=== PATIENT | male | born 1975 | race Caucasian/White ===

== ENCOUNTER 2019-01-20 13:03 | Inpatient (IN) | payer OTHER ==
[2019-01-20] MEDS ORDERED: LR 1,000 ML IV ONE (13:12)
--- NOTE | 2019-01-20 13:56 | PDHPUP ---
History & Physical Update H&P update statement: This history and physical update is based on an assessment of the patient which was completed after admission or registration (within 24 hours), but prior to the surgery/procedure. H&P update: H&P reviewed & patient examined, no change in patient's condition since H&P completed
[2019-01-20] MEDS ORDERED: BUPIVACAINE/EPI 0.25% 30 ML SDV ONE (13:57)
[2019-01-20] MEDS ORDERED: BACITRACIN 50,000 UNITS/10 ML SYR IRR ONE ×2 (13:59→16:45)
[2019-01-20] MEDS ORDERED: CHLORHEXIDINE GLUC HIBICLENS 118 ML BTL TP ONE (13:59)
[2019-01-20] MEDS ORDERED: THROMBIN (BOVINE) 20,000 UNIT VIAL TP ONE (13:59)
[2019-01-20] MEDS ORDERED: LIDOCAINE 1% 2 ML INJ ONE (14:12)
[2019-01-20] MEDS ORDERED: ENALAPRILAT DIHYDRATE 1.25 MG/ML VIAL ONE (14:20)
[2019-01-20] MEDS ORDERED: MIDAZOLAM 2 MG/2 ML VIAL ONE (14:20)
[2019-01-20] MEDS ORDERED: MAGNESIUM SULFATE 1 GM/2 ML VIAL ONE (14:35)
[2019-01-20] MEDS ORDERED: DIAZEPAM 10 MG/2 ML SYR ONE (14:36)
[2019-01-20] MEDS ORDERED: GABAPENTIN 300 MG CAP PO ONE (14:37)
[2019-01-20] MEDS ORDERED: ACETAMINOPHEN 500 MG TAB PO ONE (14:37)
[2019-01-20] MEDS ORDERED: ceFAZolin 2 GM/DEXTROSE 100 ML IV ONE (14:37)
[2019-01-20] MEDS ORDERED: PROPOFOL/EMULSION 500 MG/50 ML BOTTLE IV ONE ×4 (14:39→18:21)
[2019-01-20] MEDS ORDERED: fentaNYL 250 MCG/5 ML INJ ONE (14:39)
[2019-01-20] MEDS ORDERED: CEFAZOLIN 2 GM/DEXTROSE/100 ML BAG IV ONE (14:40)
--- NOTE | 2019-01-20 15:48 | PDANEPAE ---
ANE Past Medical History - Cardiovascular History Hx Hypertension: Yes Hx Arrhythmias: No Hx Chest Pain: No Hx Coronary Artery / Peripheral Vascular Disease: No Hx CHF / Valvular Disease: No Hx Palpitations: No - Pulmonary History Hx COPD: No Hx Asthma/Reactive Airway Disease: No Hx Recent Upper Respiratory Infection: No Hx Oxygen in Use at Home: No Hx Sleep Apnea: No - Neurologic History Hx Seizures: Yes Hx Dementia: No Neurologic History Comment: Last week 1 seizure, saturday (dry needling at PT, seizure on table). - Endocrine History Hx Diabetes: No - Renal History Hx Renal Disorders: No - Liver History Hx Hepatic Disorders: No - Neurological & Psychiatric Hx Hx Neurological and Psychiatric Disorders: No - Cancer History Hx Cancer: No - GI History Hx Gastrointestinal Disorders: No - Chronic Pain History Chronic Pain: Yes - Surgical History Prior Surgeries: Two acls L leg. Bankhart lesion R shoulder. Three injections L4-L5 ANE Review of Systems Review of Systems: - Exercise capacity METS (RN): 6 METS ANE Patient History - Allergies Allergies/Adverse Reactions: No Allergies [NKDA] Allergy (Verified 01/20/19 13:27) - Home Medications Home Medications: NK [No Known Home Meds] 01/20/19 [Last Taken Unknown] - NPO status NPO Since - Liquids (Date): 01/20/19 NPO Since - Liquids (Time): 07:30 NPO Since - Solids (Date): 01/20/19 NPO Since - Solids (Time): 06:30 - Smoking Hx Smoking Status: Never smoked ANE Labs/Vital Signs - Vital Signs Blood Pressure: 175/107 Heart Rate: 70 Respiratory Rate: 18 O2 Sat (%): 97 Height: 180.34 cm Weight: 95.254 kg ANE Physical Exam - Airway Neck exam: FROM Mallampati Score: Class 1 Mouth exam: normal dental/mouth exam - Pulmonary Pulmonary: no respiratory distress, no rales or rhonchi, clear to auscultation - Cardiovascular Cardiovascular: regular rate and rhythym, no murmur, rub, or gallop - ASA Status ASA Status: II ANE Anesthesia Plan Anesthesia Plan: general endotracheal anesthesia Lines/Monitors: additional IV Total IV Anesthesia: Yes
[2019-01-20] MEDS ORDERED: ONDANSETRON 4 MG/2 ML VIAL ONE (16:46)
[2019-01-20] MEDS ORDERED: ceFAZolin 1 GM VIAL ONE ×2 (16:46)
[2019-01-20] MEDS ORDERED: KETOROLAC 30 MG/1 ML SDV ONE (16:46)
[2019-01-20] MEDS ORDERED: LIDOCAINE 2% 5 ML SDV ONE (16:46)
[2019-01-20] MEDS ORDERED: ROCURONIUM 50 MG/5 ML VIAL ONE (16:46)
[2019-01-20] MEDS ORDERED: METOCLOPRAMIDE 10 MG/2 ML VIAL ONE (16:46)
[2019-01-20] MEDS ORDERED: DEXAMETHASONE 4 MG/ML VIAL ONE (16:46)
[2019-01-20] MEDS ORDERED: RANITIDINE 50 MG/2 ML VIAL ONE (16:46)
[2019-01-20] MEDS ORDERED: HYDROmorphONE/DILAUDID 1 MG/ML INJ IVP PRN (19:10)
[2019-01-20] MEDS ORDERED: LR 500 ML IV PRN (19:10)
[2019-01-20] MEDS ORDERED: ONDANSETRON 4 MG/2 ML VIAL IVP PRN ×2 (19:10→20:21)
[2019-01-20] MEDS ORDERED: DIAZEPAM 10 MG/2 ML SYR IVP PRN (19:10)
[2019-01-20] MEDS ORDERED: ALBUTEROL 3 ML DEYVIAL IH PRN (19:10)
[2019-01-20] MEDS ORDERED: DEXAMETHASONE 4 MG/ML VIAL IVP PRN (19:10)
[2019-01-20] MEDS ORDERED: fentaNYL 100 MCG/2 ML INJ IVP PRN (19:10)
[2019-01-20] MEDS ORDERED: PROMETHAZINE HCL 25 MG/ML INJ IVP PRN (19:10)
[2019-01-20] MEDS ORDERED: NALOXONE HCL 0.4 MG/ML INJ IVP PRN ×2 (19:10→20:21)
[2019-01-20] MEDS ORDERED: fentaNYL 100 MCG/2 ML INJ ONE (20:05)
[2019-01-20] MEDS ORDERED: BISACODYL 10 MG SUPP PR PRN (20:21)
[2019-01-20] MEDS ORDERED: MAGNESIUM HYDROXIDE 30 ML UDCUP PO PRN (20:21)
[2019-01-20] MEDS ORDERED: diphenhydrAMINE 25 MG CAP PO PRN (20:21)
[2019-01-20] MEDS ORDERED: HYDROmorphONE/DILAUDID 6 MG/30 ML PCA IV PRN (20:21)
[2019-01-20] MEDS ORDERED: LACTULOSE 20 GM/30 ML UDCUP PO PRN (20:21)
[2019-01-20] MEDS ORDERED: POLYETHYLENE GLYCOL 3350 17 GM PKT PO PRN (20:21)
[2019-01-20] MEDS ORDERED: ONDANSETRON DISINTEGRATING 4 MG TAB PO PRN (20:21)
--- NOTE | 2019-01-20 20:28 | SOAPPROG ---
SOAP Progress Note Assessment/Plan: Assessment: 43 yo M sp L4/5, L5/S1 TLIF Plan: stable PT/OT LSO brace when out of bed to stepdown overnight for precedex please call with neuro changes 01/20/19 20:27 Subjective: + back pain, no leg pain Objective: Vital Signs Temp Pulse Resp BP Pulse Ox 36.7 C 70 18 175/107 H 97 01/20/19 13:41 01/20/19 15:48 01/20/19 15:48 01/20/19 15:48 01/20/19 15:48 somnolent PERRL, EOMI TORRES x 4, right DF weakness + light touch ICD10 Worksheet Patient Problems: Problems Problem Status Onset Fusion of spine of lumbar region Acute - ICD10 Problem Qualifiers (1) Fusion of spine of lumbar region
[2019-01-20] MEDS ORDERED: NS 1,000 ML IV SCH (20:30)
[2019-01-20] MEDS ORDERED: DEXMEDETOMIDINE HCL 400 MCG in NS 100 ML IV SCH (20:45)
[2019-01-20] MEDS ORDERED: HYDROmorphONE/DILAUDID 1 MG/ML INJ ONE (20:58)
[2019-01-20] MEDS: DEXMEDETOMIDINE HCL 400 MCG in NS 100 ML IV SCH (22:19)
--- NOTE | 2019-01-20 22:51 | POSTANESTH ---
Post Anesthetic Evaluation Cardiovascular Status: Normal, Stable, Similar to Pre-Op Cond Respiratory Status: Normal, Stable, Similar to Pre-op Cond. Level of Consciousness/Mental Status: Can Participate in Eval Pain Control: Adequate, Prn Tx Ordered Nausea/Vomiting Control: Adequate, Prn Tx Ordered Complications Possibly Related to Anesthesia: None Noted
[2019-01-20] MEDS: ceFAZolin 2 GM/DEXTROSE 100 ML IV SCH (23:03)
[2019-01-20] MEDS: oxyCODONE IR 5 MG TAB PO PRN (23:16)
[2019-01-20] MEDS: HYDROmorphONE/DILAUDID 1 MG/ML INJ IVP PRN (23:17)
[2019-01-20] MEDS: SENNOSIDES/DOCUSATE SODIUM TAB PO SCH (23:43)
[2019-01-20] MEDS: FAMOTIDINE 20 MG TAB PO SCH (23:44)
[2019-01-21] MEDS: oxyCODONE IR 5 MG TAB PO PRN ×5 (03:07→20:35)
[2019-01-21] MEDS: DEXMEDETOMIDINE HCL 400 MCG in NS 100 ML IV SCH (04:03)
[2019-01-21] MEDS: METHOCARBAMOL 750 MG TAB PO PRN ×4 (04:16→23:39)
[2019-01-21] MEDS: HYDROmorphONE/DILAUDID 1 MG/ML INJ IVP PRN ×2 (04:16→17:25)
--- NOTE | 2019-01-21 04:16 | GOP ---
[f rep st] OPERATIVE REPORT DATE OF OPERATION: 01/20/2019 SURGEON: Cristi Clemons MD NEUROSURGEON: Cristi Clemons M.D. LABEL MACHINE OPERATOR: 1. Saleem Barr PA-C. 2. Oh Partida PA-C. PREOPERATIVE DIAGNOSIS: 1. Right foot drop. 2. Spondylolysis L5. 3. Spondylolisthesis L5-S1. 4. 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 5. Disk herniation L4-5. POSTOPERATIVE DIAGNOSIS: 1. Right foot drop. 2. Spondylolysis L5. 3. Spondylolisthesis L5-S1. 4. 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 5. Disk herniation L4-5. 6. Bilateral pars defects at L5. PROCEDURE PERFORMED: Posterior lateral and intervertebral arthrodesis L4-5, L5-S1 with a Yang decomp ression bilaterally at L5-S1 ([id number], [id number]), posterior segmental instrumentation L4, L5, S1 ([id number]), spinal stereotaxis, placement of biomechanical intervertebral device L4-5, L5-S1, same incision bone graft harvest, microscope. FINDINGS: ESTIMATED BLOOD LOSS: 300 cc. INDICATIONS: The patient is a 43-year-old gentleman who had a prior history of at least unknown righ t L5 pars fracture, thought to be secondary to a skiing accident he had in years past and he had been followed very thoughtfully by the physicians at the [facility] in [place], with a very sub stantial spondylolisthesis at L5-S1 measuring about 13 mm and intermittent bouts of terrible pain ove r the years, always treated successfully with interventional treatments. He had an MRI done earlier this year and over the last several months, the pain has really been increasing dramatically. He was found to have a new onset right footdrop last week when visiting Dr. Garcia at the [facility] and when this was appreciated, I was contacted and I suggested the patient come down for relati vely urgent surgery. The patient elected to stay in [place] over the weekend, which almost certainly wa s a reasonable thing given that the timing of the actual footdrop and its onset was not clearly known and he came down and saw me yesterday in the office and indeed had a relatively profound weakness of the right extensor hallucis longus at 2/5 in his MRI explained why this would be the case with doubl e crush phenomenon for the L5 nerve root, both at the L4-5 level and at the L5-S1 foramen due to spon dylolysis with listhesis at that level. There was really no significant left foraminal stenosis, how ever. He had no left-sided symptoms. Because of the profound footdrop and really terrible pain he had been experiencing, I suggested urgen t surgery and he was placed on the OR schedule today, the day after I met him. The risks of the proc edure including the risk of pseudoarthrosis, persistent footdrop, nerve injury, spinal fluid leak, th e need for future spine surgery, particularly at the L3-4 level where he did have some evidence of pa thology already was discussed. I told him there was a very high probability over the next decade he would require surgery at L3-4 and he understood this. He knew there was a chance surgery would fail to eliminate his symptoms and he did want to proceed despite these known risks. DESCRIPTION OF PROCEDURE: The patient was taken to the operating room, placed in supine position. G eneral anesthesia was begun. He was flipped prone onto the Shailesh table. Care was taken to pad all points of contact. His back was sterilely prepped and draped in usual fashion. A localizing x-ray was taken. We made a midline incision from the spinous process of L3 down to the spinous process of S1. The subcutaneous tissue was dissected using Bovie cautery down through the fascia and a subperio steal dissection was made down the inferior lamina of L3, lamina of L4, and the lamina of L5 was expo sed. There was a step-off between the L4 spinous process and the L5 spinous process consistent with a pars defect or spondylolysis of L5. We shot localizing x-rays and then denuded the bilateral facet joints at L4-5, L5-S1. The facet joints at L4-5 looked terrible. They actually were more abnormal than the facet joints even at L5-S1. These were denuded and I was very happy that we decided to incl ude the L4-5 level after looking at the L4-5 facet joints. The L3-4 facet joints, however, were inta ct and we preserved the L3-4 facet joints. We decorticated the transverse processes of L4, L5 in the sacrum. The exposure was relatively deep as is common with a spondylolysis case and the L5 lamina w as mobile and it is my feeling that he had a bilateral pars defect based on mobility of the lamina, b ut on the MRI imaging, really only the right-sided pars defect was seen. We performed an O-arm spin and using frameless Stealth stereotaxis, placed pedicle screws bilaterally, 1st at L5, then at L4 and then at S1. All the screws were . We used 6.5 mm screws in all those locations and put a bicortical screw on the left at the sacrum. I chose a 40 mm screw. There was a 6.5 mm screw on the right at S1. We had measured this to be bicortical and I put it in. It really was not bicortical. I could tell from how tightened down, but this screw had not pierced the ventral cortex of the sacru m or it was simply too short. I removed that screw and used pedicle probe to go down the same hole a nd indeed we had pierced the ventral cortex with our pedicle probe. I simply chose a 7.5 x 45 mm scr ew on the right at S1, removed and discarded the right S1 screw that I had placed because of the mamadou ent's anatomy, so 1 screw was wasted because of this. Put in a 7.5 mm x 45 mm screw and got great pu rchase both in the ventral and dorsal portion of the bone and it felt terrific. We then performed an O-arm spin. All the screws were in excellent position. The S1 screws were bicortical and the screw s all stimulated 20 milliamps. We chose 70 mm rods, placed them down between the L4 and S1 Tulip and then we reduced the rods onto the L5 Tulip which substantially reduced the spondylolisthesis. We di d this 1st on the left and then went to the right. We then distracted slightly between L4 and L5, bu t then more significantly between L5 and S1 and this consumed the entire 70 mm vero. It was very happ y. We shot an x-ray and I was very happy with the reduction of the spondylolisthesis at L5-S1. We then removed all soft tissue of the bone from the L4 and L5 spinous process. We then harvested th e inferior L4 spinous process for autologous grafting purposes. We harvested the complete L5 lamina for autologous grafting purposes and we had a large amount of bone. The L5 lamina was indeed floatin g. It was not clear to me why there was no left-sided foraminal stenosis, but this became clear as w e decompressed. We did right hemilaminectomies of L4 and L5, removed the right L4-5 and L5-S1 facet joints. We then began our decompression on top of the nerve at the L4-5 level where we decompressed the lateral aspect of the thecal sac and then followed the L5 nerve adjacent to the L5 pedicle down u nder the isthmic spondylolisthesis and isthmic fragment coming off the L5 pedicle and this was remove d. We got a great decompression of the [address] into the neural foramen. There was just incredible stenosis. The nerve was literally as flat as a piece of linguini as we impinged it, and I had to use a 2 mm Kerrison to follow this nerve from the 4-[address] down to the L5-S1 for amen. There was no such compression in the lateral recess at L5-S1 but we had a wonderful decompress ion of the entire course of the L5 nerve from its takeoff from the thecal sac. ]I then went back to the L4-5 level to look at the disk space there and there was a web of just incre dibly tough epidural veins. They were actually choking on the shoulder of the L5 nerve root. They w ent over the shoulder of the nerve root and then into the axilla and were tied to the epidural veins that were on top of the prolapsed L4-5 disk that we had seen on the MRI. It was really a remarkable finding. I took a ball-tip probe and these these epidural veins were actually compressive. They wer e physically kinking the L5 nerve and it was a very unusual finding. I elevated them off the L5 nerv e and simply divided them. It was relatively straightforward to release this band of tissue on top o f the nerve and the nerve was much more relaxed when we did this. We then swept the L5 nerve mediall y and there was a lot of adherence of the dura to a large central disk protrusion. It was quite adhe rent and I chose not to fight this espinoza currently. I went back down to L5-S1 and had a great view of the L5-S1 disk and then I wanted to finish my Yang decompression at L5 and so I went and I removed the remainder of loose L5 lamina. It is interesting, the pars defect on the left side, I worked and removed the attachments between the L5 lamina and L4 lamina on the patient's left side as well as th e L5 lamina and the S1 lamina and then I relatively easily just lifted this bone out and the pars def ect was really in the lamina itself. It was not truly in the pars of the traditional location of a p ars defect. It was up away from the neural foramina itself and once this was removed, I had a great visualization of the entire SAP of the sacrum which we decorticated and then there was a large amount of residual pars coming off the L5 pedicle which we decorticated all this bone and it was nearly kis sing the SAP of the sacrum, so on the left side, there was not a big gap. I passed a ball-tip probe underneath this area out into the foramen and indeed consistent with MRI findings. There was no sten osis of the left-sided L5 nerve root, but now we had a great posterior lateral fusion surface on the left, both at the L4-5 and the L5-S1 segment after removal of the floating lamina. I then went to th e L4-5 level and swept the nerve medially but really could not move the L5 nerve over the large ventr al fragments. We incised the lateral annulus of the 4-5 disk, removed the disk and the cartilaginous endplates. We were able to tug and pull several pieces of subannular herniated disk out from the ce ntral fragment down into the disk space and we roughened all the subchondral bone there to create art hrodesis of the large disk and we got a huge amount of disk material out of that disk space. As I di d this, I then went back up more superficially, trying to sweep the nerve medially and as I did so, I broke into the prolapsed fragment centrally at L4-5 and removed a huge amount of disk material that was sitting in the spinal canal. This window into the disk itself gave me an opening and I enlarged this opening and swept rostrally and inferiorly and really mobilized the whole thecal sac and the rig ht L5 nerve root and I was able to get all of this disk material out. I spent a lot time under the m icroscope removing the central disk and we had a great decompression and really had gotten virtually all of it out. We then irrigated with some antibiotic saline solution. We went to the L5-S1 level and this was pretty straightforward. We swept the S1 nerve root medially, incised the L5-S1 disk, removed the disk, and the cartilaginous endplates. We roughened the subchon dral bone to create arthrodesis there at L5-S1. There was nothing unusual about that interspace. We then sized each interspace. I chose a 7 x 23 mm expandable device for L5-S1 and a 7 x 28 mm device for L4-5. These were packed with BMP. We used 4 mg total of BMP in the surgery. There was 2 mg sarah ob in the disk spaces, so 1 mg each in each of the disk spaces. Put bone autograft followed by the expandable devices into the disk space as well. Had a large amount of bone autograft. We sized the spaces, put those in and expanded the intervertebral devices at L4-5 and L5-S1 under fluoroscopic bebo dance. I was very happy with the position of those devices. It was well away from the nerve roots a nd appeared to be nicely seated within the intervertebral spaces. We then decorticated all the remai sully posterolateral bone bilaterally at L4-5 and 5-1 for posterolateral arthrodesis and then placed B MP posterolaterally bilaterally from L4 to the sacrum using 2 mg total, 1 mg on each side from L4 to the sacrum and the left side. There was a large amount of bone surface for posterolateral arthrodesis, but we did do posterolateral arthrodesis on the right side as well. A subfascial drain was placed. We then closed the incision in multiple layers using Vicryl sutures. Steri-Strips were applied the skin. The patient was reversed from anesthesia, extubated, and transferred to the [facility] room in stable condition. There were no complications. I was very happy with the way this case went. COMPLICATIONS: None. /[id number]/MODL
[2019-01-21 05:52] LABS: PLATELET COUNT 154 10^3/uL (150-400)
[2019-01-21] MEDS: ceFAZolin 2 GM/DEXTROSE 100 ML IV SCH (06:24)
--- NOTE | 2019-01-21 07:40 | NEUSURGPN ---
Date of Surgery: 01/20/19 Post Op Day: 1 Assessment/Plan: Assessment: 43 yo M sp L4/5 and L5/S1 TLIF POD #1 Plan: -s/p TLIF L4-S1: orders in place. Pt with expected lower back pain, RLE feels better -continue with current pain medications-work on weaning off of precedex/IV meds -PT/OT-CPM -LSO brace when out of bed -continue with stepdown for precedex until off of this medication -pt seen by Dr Clemons as well -please call with neuro changes -pt understands and agrees Subjective: Awake and alert. NAD. Eating/drinking. No f/c/n/v/d. No avelar/neck/chest/abd or gu complaints. Objective: AAO x 3, PERRLA/EOMI no droop CN 2-12 grossly intact +lt touch 5/5 BUE/BLE = except right EHL at 3+/5 (improved) CDI CAITLYN in place Neuro Check Frequency: per routine Urinary Catheter in Place: No Catheter Insertion Date: 01/20/19 - Physician Discussed Patient with Dr.: Deonte Patient Seen by : Deonte Neurosurgery Physical Exam - Vitals, I&O, Labs I and O 01/20/19 01/21/19 01/22/19 05:59 05:59 05:59 Intake Total 4264.9 Output Total 2255 25 Balance Weight 95.254 kg Intake: Oral (ml) 1565 IV Intake (ml) 1800 IV Infused (ml) 899.9 Dexmedetomidine HCl 400 117.9 mcg In Ns 100 ml @ Titrate IV CONT HARSHAD Rx#: [id number] Ns 1,000 ml @ 100 mls/hr 682 IV CONT HARSHAD Rx#: [id number] ceFAZolin 2 GM/DEXTROSE 100 100 ml @ 200 mls/hr IV Q8H HARSHAD Rx#:[id number] Output: Urine (ml) 1600 Catheter 1600 Estimated Blood Loss (ml) 350 CAITLYN Drain Output (ml) 305 25 #1 Posterior Back 305 25 Vital Signs Temp Pulse Resp BP Pulse Ox 36.5 C 47 L 14 136/85 H 97 01/21/19 04:00 01/21/19 04:00 01/21/19 04:00 01/21/19 04:00 01/21/19 04:00 Laboratory Results 01/21/19 05:42 01/21/19 05:42 ICD10 Worksheet Patient Problems: Problems Problem Status Onset Fusion of spine of lumbar region Acute
[2019-01-21] MEDS: SENNOSIDES/DOCUSATE SODIUM TAB PO SCH ×2 (08:12→20:35)
[2019-01-21] MEDS: FAMOTIDINE 20 MG TAB PO SCH ×2 (08:13→20:35)
--- NOTE | 2019-01-21 08:28 | PDMN ---
Medical Necessity Medical necessity: [facility] [place] S820 lumbar fusion: ESTRADA INPT only OP: L4/5,L5/S1 TLIF salazar fusion wmejia
[2019-01-21] MEDS: LORazepam 1 MG TAB PO PRN ×3 (09:13→23:39)
[2019-01-22] MEDS: oxyCODONE IR 5 MG TAB PO PRN ×2 (04:49→08:54)
[2019-01-22] MEDS: METHOCARBAMOL 750 MG TAB PO PRN ×3 (05:35→20:22)
--- NOTE | 2019-01-22 07:50 | NEUSURGPN ---
Date of Surgery: 01/20/19 Post Op Day: 2 Assessment/Plan: Assessment: 43 yo M s/p L4/5 and L5/S1 TLIF POD #2 Plan: -s/p TLIF L4-S1: orders in place. Pt with expected lower back pain, RLE feels good -continue with current pain medications-work on weaning off of IV meds-he had one dose of IV pain meds last night -CAITLYN in place-will dc today -post op xrays look good-shared with pt/reviewed with Dr Clemons -PT/OT-CPM -LSO brace when out of bed -pt seen by Dr Clemons as well -please call with neuro changes -pt understands and agrees Subjective: Awake and alert. Pt with some expected lower back pain. Doing well. No avelar/ neck/chest/abd or gu complaints. Eating/drinking and voiding well Objective: AFVSS/PERRLA/EOMI no droop CN 2-12 grossly intact +lt touch 5/5 BUE/BLE = CDI CAITLYN in place Neuro Check Frequency: per routine Urinary Catheter in Place: No Catheter Insertion Date: 01/20/19 - Physician Discussed Patient with : Deonte Patient Seen by : Deonte Neurosurgery Physical Exam - Vitals, I&O, Labs I and O 01/21/19 01/22/19 01/23/19 05:59 05:59 05:59 Intake Total 4264.9 5620 Output Total 2255 4335 Balance 2009.9 1285 Weight 95.254 kg Intake: Oral (ml) 1565 5200 IV Intake (ml) 1800 420 IV Infused (ml) 899.9 Dexmedetomidine HCl 400 117.9 mcg In Ns 100 ml @ Titrate IV CONT HARSHAD Rx#: [id number] Ns 1,000 ml @ 100 mls/hr 682 IV CONT HARSHAD Rx#: [id number] ceFAZolin 2 GM/DEXTROSE 100 100 ml @ 200 mls/hr IV Q8H HARSHAD Rx#:[id number] Output: Urine (ml) 1600 3925 Catheter 1600 Urinal 3925 Estimated Blood Loss (ml) 350 CAITLYN Drain Output (ml) 305 410 #1 Posterior Back 305 410 Other: Intake Quantity Yes Sufficient Number of Voids Urinal 1 Vital Signs Temp Pulse Resp BP Pulse Ox 36.7 C 75 16 122/78 H 94 01/22/19 04:00 01/22/19 04:00 01/22/19 04:00 01/22/19 04:00 01/22/19 04:00 Laboratory Results 01/21/19 05:42 01/21/19 05:42 ICD10 Worksheet Patient Problems: Problems Problem Status Onset Fusion of spine of lumbar region Acute
[2019-01-22] MEDS: SENNOSIDES/DOCUSATE SODIUM TAB PO SCH ×2 (08:52→20:21)
[2019-01-22] MEDS: FAMOTIDINE 20 MG TAB PO SCH ×2 (08:53→20:22)
[2019-01-22] MEDS: LORazepam 1 MG TAB PO PRN ×3 (11:01→23:39)
[2019-01-22] MEDS: ACETAMINOPHEN 325 MG TAB PO PRN ×2 (12:27→20:21)
[2019-01-22] MEDS: HYDROmorphONE/DILAUDID 2 MG TAB PO PRN ×3 (12:27→20:39)
--- NOTE | 2019-01-22 17:04 | ASMTCMCOM ---
CM Note CM Note Notes: Pt had planned surgery (L4-S1 TLIF), resides alone. OT rec home, PT rec home care. Spoke with pt who will d/c to his parents home also in [place]. Pt declines home care, stating he has an established outpatient PT he will work with when cleared by MD. Pt also mentions he already researched home care and due to location there is no agency which services where he and his parents reside. Pt parents staying locally and will provide transport home. Anticipate pt will d/c when medically stable, no CM d/c needs identified. CM available for changes/needs. Date Signed: 01/22/2019 05:03 PM Electronically Signed By:RADHA Barrett
[2019-01-23] MEDS: HYDROmorphONE/DILAUDID 2 MG TAB PO PRN ×2 (01:14→07:44)
[2019-01-23] MEDS: METHOCARBAMOL 750 MG TAB PO PRN ×2 (03:35→09:45)
[2019-01-23] MEDS: ACETAMINOPHEN 325 MG TAB PO PRN ×2 (03:35→09:45)
[2019-01-23] MEDS: SENNOSIDES/DOCUSATE SODIUM TAB PO SCH (07:45)
[2019-01-23] MEDS: FAMOTIDINE 20 MG TAB PO SCH (07:46)
[2019-01-23 08:06] VITALS: BP 141/94
--- NOTE | 2019-01-23 08:16 | NEUSURGPN ---
Date of Surgery: 01/20/19 Post Op Day: 3 Assessment/Plan: 43 yo male s/p L4-S1 TLIF POD#3 - neuro stable - pain better controlled on Dilaudid and Robaxin - wear brace when out of bed - postop x-rays with hardware in good position - PT/OT - discharge home today Discussed with Dr. Clemons. Subjective: Pain more controlled this morning. No LE symptoms. Objective: Awake. Alert. PERRL. EOMI Facial expression symmetrical Strength full except for right EHL at 3/5 Sensation intact Incision with dressing c/d/i Catheter Insertion Date: 01/20/19 - Physician Discussed Patient with : Deonte Neurosurgery Physical Exam - Vitals, I&O, Labs I and O 01/22/19 01/23/19 01/24/19 05:59 05:59 05:59 Intake Total 5620 2350 350 Output Total 4335 3290 500 Balance 1285 -940 -150 Intake: Oral (ml) 5200 2350 350 IV Intake (ml) 420 Output: Urine (ml) 3925 3250 500 Urinal 3925 3250 500 CAITLYN Drain Output (ml) 410 40 #1 Posterior Back 410 40 Other: Intake Quantity Yes Yes Sufficient Number of Voids Urinal 1 1 1 Vital Signs Temp Pulse Resp BP Pulse Ox 36.4 C 76 20 141/94 H 96 01/23/19 07:53 01/23/19 07:53 01/23/19 07:53 01/23/19 07:53 01/23/19 07:53 Laboratory Results 01/21/19 05:42 01/21/19 05:42 ICD10 Worksheet Patient Problems: Problems Problem Status Onset Fusion of spine of lumbar region Acute
[2019-01-23] MEDS ORDERED: ENOXAPARIN 40 MG/0.4 ML SYR SC SCH (09:00)
--- NOTE | 2019-01-23 09:43 | ASMTLACE ---
LACE Length of stay for Answers: 4-6 days current admission Acuity / Level of Answers: Yes Care: Did the patient have an inpatient admission? Comorbidities - select Answers: Opioid dependence all that apply / Chronic pain Other Notes: HTN # of Emergency department Answers: 0 visits in the last 6 months Score: 12 Date Signed: 01/23/2019 09:42 AM Electronically Signed By:RADHA Barrett
[2019-02-09] MEDS ORDERED: ceFAZolin 1 GM VIAL ONE (11:06)
== END 2019-01-23 11:24 | disposition home or self-care (01) | DRG 455 ==
LOC: FSGY 13:03 → F2N 20:21 → F3N 01-21 11:15
PROVIDERS: ADMIT Neurological Surgery; ATTEND Neurological Surgery
PROC: 0ST20ZZ Resection of Lumbar Vertebral Disc, Open Approach (ICD-10-PCS; principal; 2019-01-20 15:00)
PROC: 0SG00AJ Fusion of Lumbar Vertebral Joint with Interbody Fusion Device, Posterior Approach, Anterior Column, Open Approach (ICD-10-PCS; principal; 2019-01-20 15:00)
PROC: 0SG3071 Fusion of Lumbosacral Joint with Autologous Tissue Substitute, Posterior Approach, Posterior Column, Open Approach (ICD-10-PCS; principal; 2019-01-20 15:00)
PROC: 01NB0ZZ Release Lumbar Nerve, Open Approach (ICD-10-PCS; principal; 2019-01-20 15:00)
PROC: 8E0WXBF Computer Assisted Procedure of Trunk Region, With Fluoroscopy (ICD-10-PCS; principal; 2019-01-20 15:00)
PROC: 01NR0ZZ Release Sacral Nerve, Open Approach (ICD-10-PCS; principal; 2019-01-20 15:00)
PROC: 00NY0ZZ Release Lumbar Spinal Cord, Open Approach (ICD-10-PCS; principal; 2019-01-20 15:00)
PROC: 0SG0071 Fusion of Lumbar Vertebral Joint with Autologous Tissue Substitute, Posterior Approach, Posterior Column, Open Approach (ICD-10-PCS; principal; 2019-01-20 15:00)
PROC: 4A1004G Monitoring of Central Nervous Electrical Activity, Intraoperative, Open Approach (ICD-10-PCS; principal; 2019-01-20 15:00)
PROC: 0SG30AJ Fusion of Lumbosacral Joint with Interbody Fusion Device, Posterior Approach, Anterior Column, Open Approach (ICD-10-PCS; principal; 2019-01-20 15:00)
DX: M47.26 Other spondylosis with radiculopathy, lumbar region (principal); M43.17 Spondylolisthesis, lumbosacral region; M48.061 Spinal stenosis, lumbar region without neurogenic claudication; M51.26 Other intervertebral disc displacement, lumbar region; I10 Essential (primary) hypertension
CPT/HCPCS: 97116-GP; 97161-GP; 97165-GO; 97530-GO; 97530-GP; 97535-GO; C1713; J0690; J1100; J1170; J1650; J1885; J2250; J2405; J2704; J2765; J2780; J3010; J3360; J3475

== ENCOUNTER → 2019-03-17 | Outpatient (CLI) | payer OTHER | LOC: FIMAGING 09:09 ==